=== PATIENT | male | born 1930 | race Caucasian/White ===

== ENCOUNTER 2017-01-18 13:06 | Inpatient (IN) | payer MEDICARE, OTHER ==
[~2017-01-18] VITALS: Ht 177.8 cm; Wt 65.9 kg
[2017-01-18 13:36] LABS: BASOPHILS 0.1 % (0.0-2.0); EOSINOPHILS 0.1 % (0-7); HEMATOCRIT 41.1 % (42.0-54.0); HEMOGLOBIN 14.1 g/dL (13.5-17.5); IMMATURE GRANULOCYTES 0.4 % (0-5); LYMPHOCYTES 5.5 % (15-50); MCH 29.9 pg (26.0-34.0); MCHC 34.3 g/dL (31.0-37.0); MCV 87.3 fL (80.0-100.0); MEAN PLATELET VOLUME 9.2 fL (7.4-10.4); MONOCYTES 10.4 % (2-11); NEUTROPHILS 83.5 % (40-80); PLATELET COUNT 179 10x3/uL (130-400); RBC 4.71 10x6/uL (4.20-6.10); RDW 13.7 % (11.5-14.5); WBC 14.2 10x3/uL (4.8-10.8)
[2017-01-18 13:53] LABS: ALBUMIN 3.1 g/dL (3.4-5.0); ANION GAP 13.2 mmol/L (8-16); BILIRUBIN - TOTAL 0.58 mg/dL (0.2-1.3); CALCIUM 8.8 mg/dL (8.5-10.1); CARBON DIOXIDE 24.6 mmol/L (21.0-32.0); CREATININE - SERUM 1.5 mg/dL (0.6-1.3); POTASSIUM - SERUM 5.8 mmol/L (3.5-5.1); PROTEIN - SERUM 6.8 g/dL (6.4-8.2)
--- NOTE | 2017-01-18 19:50 | NUR ---
RECEIVED FROM ER. VITALS ARE STABLE, IV-LFA-NS@ 75, FAMILY AT BEDSIDE, BED IS LOW, SRX2, CALL LIGHT IN REACH, WILL CONTINUE TO MONITOR
[2017-01-18 19:51] LABS: COLOR YELLOW (YELLOW)
[2017-01-18 19:52] LABS: APPEARANCE CLEAR (CLEAR); BILIRUBIN NEGATIVE (NEGATIVE); GLUCOSE NEGATIVE (NEGATIVE); KETONE NEGATIVE (NEGATIVE); LEUKOCYTE ESTERASE TRACE (NEGATIVE); NITRITE NEGATIVE (NEGATIVE); PROTEIN NEGATIVE (NEGATIVE); SPECIFIC GRAVITY 1.015 (1.005-1.020); UROBILINOGEN NORMAL (NORMAL)
[2017-01-18 19:56] LABS: BACTERIA NONE SEEN /hpf (NONE SEEN); EPITHELIAL CELLS 0-5 /hpf (0-5); RED CELLS - URINE 0-5 /hpf (0-5); WHITE CELLS - URINE 0-5 /hpf (0-5)
[2017-01-18 20:00] VITALS: BP 132/67
[2017-01-18] MEDS ORDERED: LISINOPRIL5 MG PO (20:07)
[2017-01-18] MEDS ORDERED: BAYER CHEWABLE81 MG PO (20:07)
[2017-01-18] MEDS ORDERED: BACTRIM DS TABL1 TAB PO (20:09)
[2017-01-18] MEDS ORDERED: ATIVAN0.5 MG PO (20:13)
[2017-01-18] MEDS ORDERED: TRAZODONE HCL50 MG PO (20:13)
[2017-01-18] MEDS ORDERED: CEREFOLIN NAC (20:14)
[2017-01-18] MEDS ORDERED: PLAVIX75 MG PO (20:14)
[2017-01-18] MEDS ORDERED: LIPITOR40 MG PO (20:15)
[2017-01-18 23:53] VITALS: Ht 177.8 cm; Wt 65.9 kg
[2017-01-19] VITALS: BP 135/75
--- NOTE | 2017-01-19 03:36 | NUR ---
ICING COATER AT BEDSIDE TO OBTAIN VITALS, CALL LIGHT IN REACH. WILL CONTINUE WITH PLAN OF CARE.
[2017-01-19 04:00] VITALS: BP 155/83
--- NOTE | 2017-01-19 06:21 | NUR ---
PT RESTING, CALL LIGHT IN REACH, BOX ALARM IS ON, WILL CONTINUE TO MONITOR
--- NOTE | 2017-01-19 07:53 | NUR ---
AM ROUNDING DONE WITH AIR TRANSPORTATION PROVIDER NURSE, ON HEART MONITOR SHOWING ST W BBB, HR 102. NS INFUSING AT 75 CC/HR TO LEFT FA WITHOUT PROBLEMS. PATIENT IS SLIGHLTLY CONFUSED, BOX ALARM IS IN USE CORRECTLY. WILL MONITOR.
[2017-01-19 09:52] VITALS: BP 140/71
--- NOTE | 2017-01-19 13:15 | NUR ---
RECEIVED CALL BACK FROM DR RECIO REGARDING PATIENT. INFORMATION GIVEN AND HE STATES THAT HE WILL SEE HIM AFTER CLINIC TODAY.
[2017-01-19 13:19] VITALS: BP 172/86
--- NOTE | 2017-01-19 14:55 | NUR ---
TALKED TO PATIENT ABOUT WEARING SCD'S AND HE REFUSED.
[2017-01-19 16:38] VITALS: BP 157/61
--- NOTE | 2017-01-19 16:38 | NUR ---
ASSISTED PATIENT TO RESTROOM. PATIENT FELT VERY WARM, FLUSHED LOOKING. CHECKED ORAL TEMP, 98.3. PAST BATHROOM USE, PATIENT FELT NORMAL AND FACE STILL A LITTLE FLUSHED. ENCORAGED TO COUGH AND DEEP BREATH.
--- NOTE | 2017-01-19 17:06 | NUR ---
Patient Name: GREG CORREIA Admission Status: ER Accout number: [id number] Admission Date: 01-18-2017 : 1930 Admission Diagnosis:DEHYDRATION Attending: CHUCK Current LOS: 1 Anticipated DC Date: Planned Disposition: Home Primary Insurance: MEDICARE A & B Discharge Planning Comments: * Is the patient Alert and Oriented? Yes 0 * How many steps to enter\exit or inside your home? 2 0 * PCP DR. RECIO 0 * Pharmacy [facility] 0 * Preadmission Environment Home with Family 0 * ADLs Independent 0 * Equipment Cane Walker 0 * Other Equipment NO MEDICAL EQUIPMENT PROVIDER PREFERENCE 0 * List name and contact numbers for known caregivers / representatives who currently or will assist patient after discharge: CORRINE CORREIA, SPOUSE, / [phone] 0 * Community resources currently utilized None 0 * Please name any agencies selected above. NONE 0 * Additional services required to return to the preadmission environment? No 0 * Can the patient safely return to the preadmission environment? Yes 0 * Has this patient been hospitalized within the prior 30 days at any hospital? No 0 CM MET WITH PT AND SPOUSE IN ROOM TO DISCUSS DISCHARGE PLANNING AND NEEDS. PT REPORTS LIVING AT HOME INDEPENDENTLY WITH SPOUSE. PT HAS A CANE AND TWO WALKERS, ONE WITH WHEELS, SEAT AND BRAKES. PT HAS NO MEDICAL EQUIPMENT PROVIDER PREFERENCE AND NO OUTSIDE SERVICES ASSISTING IN THE HOME. CM DISCUSSED AVAILABILITY OF HOME HEALTH, REHAB SERVICES AND MEDICAL EQUIPMENT. PT DENIES DISCHARGE NEEDS AT THIS TIME, REPORTS HIS SPOUSE WILL PICK HIM UP FOR DISCHARGE HOME. FAMILY ASKED GENERAL QUESTIONS ABOUT LIFT CHAIRS AND WHAT MEDICARE PAYS FOR. CM EXPLAINED THAT MEDICARE PAYS FOR THE LIFT BUT NOT THE ACTUAL CHAIR AND ADVISED THEM TO FOLLOW UP WITH A MEDICAL EQUIPMENT COMPANY REGARDING NEEDED PAPERWORK FROM A PHYSICIAN WELL WHAT THE COST WOULD BE. PT PLANS TO DISCHARGE HOME WITH SPOUSE AND DOES NOT ANTICIPATE ANY DISCHARGE NEEDS AT THIS TIME. CM TO FOLLOW AND ASSIST NEEDED. Investigative Shopper: Nicholas Chicas
--- NOTE | 2017-01-19 17:34 | NUR ---
PATIENT HAS BEEN USING HIS CALL LIGHT FOR NEEDS TODAY. BOX ALARM IS ON. FAMILY AT BEDSIDE. WILL CONTINUE TO MONITOR.
--- NOTE | 2017-01-19 20:00 | NUR ---
PT RESTING IN BED. ALERT/ORIENTED. SON AT BEDSIDE AND WATCHING BASKETBALL ON TV. NS @ 75ML/HR INFUSING TO LFA. NONLABORED RESPIRATIONS ON ROOM AIR. SR PER TELEMETRY. CALL LIGHT IN REACH. REVIEWED PLAN OF CARE AND NEW ORDERS PER DR. RECIO.
[2017-01-19 21:44] VITALS: BP 145/78
--- NOTE | 2017-01-19 23:27 | NUR ---
PT HAD REQUESTED THAT EAST CATHETER BE PLACED AFTER THE DaqiBALL GAME. 16FR EAST INSERTED NOW AND URINE COLLECTED FOR URINALYSIS AND C&S. PT NOW RESTING. IVF INFUSING NS @ 75ML/HR AND INITIAL DOSE OF IV ROCEPHIN HAS INFUSED.
[2017-01-20 00:35] VITALS: BP 139/80
[2017-01-20 01:49] LABS: APPEARANCE CLEAR (CLEAR); BILIRUBIN NEGATIVE (NEGATIVE); COLOR YELLOW (YELLOW); GLUCOSE NEGATIVE (NEGATIVE); KETONE NEGATIVE (NEGATIVE); LEUKOCYTE ESTERASE NEGATIVE (NEGATIVE); NITRITE NEGATIVE (NEGATIVE); PROTEIN NEGATIVE (NEGATIVE); UROBILINOGEN NORMAL (NORMAL)
[2017-01-20 01:50] LABS: BACTERIA NONE SEEN /hpf (NONE SEEN); EPITHELIAL CELLS 0-5 /hpf (0-5); WHITE CELLS - URINE 0-5 /hpf (0-5)
--- NOTE | 2017-01-20 04:28 | NUR ---
RESTING IN BED. IVF INFUSING. NO DISTRESS. SR PER TELEMETRY.
[2017-01-20 04:36] VITALS: BP 157/80
[2017-01-20 05:12] LABS: BASOPHILS 0.1 % (0.0-2.0); EOSINOPHILS 0.1 % (0-7); HEMATOCRIT 33.2 % (42.0-54.0); IMMATURE GRANULOCYTES 0.3 % (0-5); LYMPHOCYTES 8.5 % (15-50); MCH 28.9 pg (26.0-34.0); MCHC 33.1 g/dL (31.0-37.0); MCV 87.4 fL (80.0-100.0); MEAN PLATELET VOLUME 9.1 fL (7.4-10.4); MONOCYTES 10.5 % (2-11); NEUTROPHILS 80.5 % (40-80); PLATELET COUNT 150 10x3/uL (130-400); RDW 13.9 % (11.5-14.5)
[2017-01-20 05:14] LABS: WBC 10.1 10x3/uL (4.8-10.8)
[2017-01-20 05:27] LABS: CALCIUM 8.1 mg/dL (8.5-10.1); CARBON DIOXIDE 22.3 mmol/L (21.0-32.0); CHLORIDE - SERUM 104 mmol/L (98-107); GLUCOSE 134 mg/dL (74-106); SODIUM 136 mmol/L (136-145)
[2017-01-20 05:30] LABS: CALC OSMOLALITY 276 mosm/kg (275-300); CREATININE - SERUM 0.9 mg/dL (0.6-1.3); POTASSIUM - SERUM 4.1 mmol/L (3.5-5.1); UREA NITROGEN 22 mg/dL (7-18); eGFR NON AFRICAN AMERICAN 85 mL/min (90-120)
--- NOTE | 2017-01-20 07:46 | NUR ---
AM ROUNDING- PT LAYING ON RIGHT SIDE WITH EYES CLOSED RESTING. ON MONITOR SHOWING SR, HR 85. ON ROOM AIR. IV SEEN TO LEFT FOREARM WITH NS RUNNING AT 75CC/HR. EAST CATHETER WITH YELLOW URINE SEEN. NO NEED AT CURRENT TIME. WILL CONTINUE TO MONITOR AND CONTINUE WITH PLAN OF CARE.
[2017-01-20 08:00] VITALS: BP 125/65
--- NOTE | 2017-01-20 11:06 | NUR ---
1035- PT TO XRAY VIA WHEELCHAIR. 1050- PT BACK FROM XRAY VIA WHEELCHAIR.
[2017-01-20 12:00] VITALS: BP 151/75
--- NOTE | 2017-01-20 12:51 | HP ---
PATIENT: GREG CORREIA MEDICAL RECORD: [id number] ACCOUNT: [id number] LOCATION:[address] : 30 ADMISSION DATE: 01/18/17 HISTORY AND PHYSICAL EXAMINATION Admission History and Physical HISTORY OF PRESENT ILLNESS: An 86-year-old male presented to the Emergency Room on 01/18/2017 with a complaint of weakness, falling and cough. PAST MEDICAL HISTORY: Significant for severe inoperable cerebrovascular disease, medically managed hypertension, previous CVA, IN and carotid endarterectomy. ALLERGIES: PENICILLIN. MEDICATIONS: Lisinopril 5 mg daily, Plavix 75 mg daily, aspirin 81 mg daily, trazodone 75 mg q.h.s. p.r.n. insomnia and also takes Cerefolin and atorvastatin. SOCIAL HISTORY: . Denies tobacco. Denies alcohol. FAMILY HISTORY: Significant for brother with metastatic prostate cancer, also has a history of hyperlipidemia, insomnia, TIAs and again a previous CVA. REVIEW OF SYSTEMS: GENERAL: No reported change in weight or appetite. HEENT: No cephalgia, visual changes, tinnitus, epistaxis or dysphagia. CARDIOVASCULAR: Denies chest pain, denies palpitations. PULMONARY: Admits cough, subjective fever and chills. Denies hemoptysis. GASTROINTESTINAL: Denies hematemesis, hematochezia or melena. GENITOURINARY: Denies dysuria. Does admit frequency. MUSCULOSKELETAL: Worsening weakness, unsteady gait and frequent falls. ENDOCRINE: Denies polyuria, polydipsia, or polyphagia. PHYSICAL EXAMINATION: VITAL SIGNS: Temperature 98.2, blood pressure of 157/61, heart rate 97, respirations 17, and O2 sats 98% on room air. GENERAL: Alert and oriented, no present distress. HEENT: Normocephalic and atraumatic. Eyes: Pupils are equally round and reactive to light and accommodation. Extraocular muscles are intact. Conjunctiva was not injected. Ears: Canals patent, TMs are intact. Nose: Nares patent without drainage. Throat: No erythema, no exudates. NECK: Supple. No lymphadenopathy, no JVD. HEART: Regular rate and rhythm. No rub. LUNGS: Slightly diminished breath sounds at the bases. Breathing is nonlabored. ABDOMEN: Soft and nontender. Bowel sounds all 4 quadrants. EXTREMITIES: Present times 4, no edema. NEUROLOGIC: No present focal deficits. SKIN: Warm and dry. No rash. LABORATORY DATA: Urinalysis yellow, clear, trace leukocyte esterase. CBC: White count 14.2, hemoglobin 14.1, hematocrit 41.1, and platelets 179. Chemistry shows a sodium of 130, potassium 5.8, chloride 98, bicarbonate 24.6, HISTORY AND PHYSICAL [id number] CORREIA,GREG JESUS BUN 30, creatinine 1.5, and glucose 126. AST 55, ALT 68, and alkaline phosphatase 125. Troponin 0.019. Of note, the patient was admitted to the wrong service. I was not notified of his admission until the nurse called my clinic late this afternoon. ASSESSMENT AND PLAN: 1. Early pneumonia. Rocephin 1 gram daily, Zithromax 250 mg p.o. daily for 4 days, probiotics. 2. Labile hypertension. Resume lisinopril 5 mg daily, monitor. 3. Inoperable cerebrovascular disease. Resume Plavix and aspirin. Supportive care. 4. Insomnia. Resume trazodone and monitor. 5. Urinary frequency, episodic incontinence. Molina to gravity. Urine from Molina insertion for urinalysis and culture. Supportive care. TRANSINT:[id number] Voice Confirmation ID: [id number] DOCUMENT ID: [id number] JOSE R RECIO DO at 1251 CC: [id number] DICTATION DATE: 01/19/171914 IMAGING SCHEDULER: 01/19/17 2030 ADM IN [facility] [address] [place] [address]
--- NOTE | 2017-01-20 14:29 | NUR ---
1303- BETHANIE WITH TELEMETRY INFORMED ME THAT PT WENT INTO UNCONTROLLED A-FIB WITH HR OF 111. WENT TO CHECK ON PT AND PT STATES, " I FEEL FINE". INSTRUCTED PT TO USE CALL LIGHT AND NOTIFY STAFF IF HAVING ANY ABNORMAL SYMPTOMS, PT AGREED. DR. BERUMEN IS ON UNIT. INFORMED DR. BERUMEN OF THIS. DR. BERUMEN STATED TO DO AN EKG ON PT. EKG DONE ORDERED AND GIVEN TO DR. BERUMEN. WILL CONTINUE TO MONITOR AND AWAIT NEW ORDERS.
[2017-01-20 15:07] LABS: T4 THYROXINE 3.6 ug/dL (4.7-13.3); THYROID STIMULATING HORMONE 0.57 uIU/mL (0.36-3.74)
[2017-01-20 16:00] VITALS: BP 114/72
--- NOTE | 2017-01-20 17:01 | NUR ---
PT LAYING IN BED ON BACK WATCHING TV. FAMILY MEMBERS AND GUEST AT BEDSIDE. NO NEED AT CURRENT TIME. WILL CONTINUE TO MONITOR.
--- NOTE | 2017-01-20 19:15 | NUR ---
RECEIVED REPORT,[id number], [id number], PT HAS A EAST, A&O, BED IS LOW, SRX2, CALL LIGHT IN REACH, WILL CONTINUE TO MONITOR
[2017-01-20 20:30] VITALS: BP 128/74
[2017-01-21 00:30] VITALS: BP 125/72
--- NOTE | 2017-01-21 00:56 | NUR ---
NUTRITION REPRESENTATIVE AT BEDSIDE FOR VS, NEEDS ADDRESSED. CALL LIGHT IN REACH. WILL CONT TO MONITOR.
--- NOTE | 2017-01-21 02:55 | NUR ---
GAVE PT PRUNE JUCIE COCKTAIL, CALL LIGHT IN REACH, BED IS LOW, SRX2
[2017-01-21 04:30] VITALS: BP 141/85
[2017-01-21 05:13] LABS: BASOPHILS 0.3 % (0.0-2.0); EOSINOPHILS 0.1 % (0-7); HEMATOCRIT 32.4 % (42.0-54.0); HEMOGLOBIN 10.6 g/dL (13.5-17.5); IMMATURE GRANULOCYTES 0.3 % (0-5); LYMPHOCYTES 13.4 % (15-50); MCHC 32.7 g/dL (31.0-37.0); MCV 88.8 fL (80.0-100.0); MEAN PLATELET VOLUME 9.3 fL (7.4-10.4); MONOCYTES 8.7 % (2-11); NEUTROPHILS 77.2 % (40-80); PLATELET COUNT 153 10x3/uL (130-400); RBC 3.65 10x6/uL (4.20-6.10)
[2017-01-21 05:18] LABS: WBC 7.5 10x3/uL (4.8-10.8)
[2017-01-21 05:25] LABS: CALC OSMOLALITY 276 mosm/kg (275-300); CALCIUM 8.1 mg/dL (8.5-10.1); CHLORIDE - SERUM 106 mmol/L (98-107); CREATININE - SERUM 0.9 mg/dL (0.6-1.3); GLUCOSE 129 mg/dL (74-106); MAGNESIUM - SERUM 1.7 mg/dL (1.8-2.4); POTASSIUM - SERUM 4.7 mmol/L (3.5-5.1); SODIUM 136 mmol/L (136-145); UREA NITROGEN 20 mg/dL (7-18); eGFR NON AFRICAN AMERICAN 85 mL/min (90-120)
--- NOTE | 2017-01-21 07:20 | NUR ---
AM ROUNDING- PT LAYING IN BED ON RIGHT SIDE WITH EYES CLOSED RESTING. CHEST RISE AND FALL SEEN. ON MONITOR SHOWING SB, HR 52. ON ROOM AIR. IV SEEN TO LEFT FOREARM WITH NS RUNNING AT 75CC/HR. EAST CATHETER WITH YELLOW URINE SEEN. SCDS ARE IN ROOM BUT CURRENTLY OFF. NO NEED AT CURRENT TIME. WILL CONTINUE TO MONITOR AND CONTINUE WITH PLAN OF CARE.
[2017-01-21 08:00] VITALS: BP 126/68
[2017-01-21 12:00] VITALS: BP 133/76
[2017-01-21 16:00] VITALS: BP 159/90
--- NOTE | 2017-01-21 17:27 | NUR ---
UPON WALKING INTO PTS ROOM PT SHOWED ME HIS ARM WHICH HAD HIS IV CATHETER WITH CATH TIP INTACT STICKING OUT. PT DENIED ANY DISCOMFORT. JOSE SUMMERS WENT TO SEE ABOUT RESTICKING PT, PT REQUESTED FOR HER TO DO IT AFTER HE GETS DONE EATING. WILL AWAIT PT TO FINISH DINNER AND TRY TO RESITE IV CATHETER.
--- NOTE | 2017-01-21 17:59 | NUR ---
JOSE SUMMERS RESITED PT X 2 STICK TO PTS LEFT FOREARM WITH 22G NEEDLE. TOLERATED WELL.
--- NOTE | 2017-01-21 18:22 | NUR ---
PT SITTING UP IN BED WITH EYES OPEN RESTING. DENIES ANY NEED AT CURRENT TIME. WILL CONTINUE TO MONITOR.
[2017-01-21 20:00] VITALS: BP 162/83
--- NOTE | 2017-01-21 20:29 | NUR ---
RESUMED CARE OF PT, LYING IN BED RESPIRAITONS EVEN AND UNLABORED ON ROOM AIR. ASSISSTED TO BATHROOM. LEFT FOREARM INFUSING NS @ 75. EAST TO GRAVITY. 73 SR ON TELEMETRY. EMERGENCY LIGHT IN REACH. WILL CONTINUE TO MONITOR. SEE NURSE ASSESSMENT.
[2017-01-22 00:15] VITALS: BP 133/71
[2017-01-22 04:42] VITALS: BP 152/85
[2017-01-22 05:30] LABS: BASOPHILS 0.1 % (0.0-2.0); EOSINOPHILS 0 % (0-7); HEMATOCRIT 32.8 % (42.0-54.0); HEMOGLOBIN 10.9 g/dL (13.5-17.5); IMMATURE GRANULOCYTES 0.2 % (0-5); LYMPHOCYTES 14.1 % (15-50); MCHC 33.2 g/dL (31.0-37.0); MCV 87.2 fL (80.0-100.0); MEAN PLATELET VOLUME 9.1 fL (7.4-10.4); MONOCYTES 6.9 % (2-11); NEUTROPHILS 78.7 % (40-80); PLATELET COUNT 179 10x3/uL (130-400); RBC 3.76 10x6/uL (4.20-6.10); RDW 13.7 % (11.5-14.5); WBC 8.3 10x3/uL (4.8-10.8)
[2017-01-22 05:37] LABS: CALC OSMOLALITY 280 mosm/kg (275-300); CALCIUM 8.2 mg/dL (8.5-10.1); CARBON DIOXIDE 24.1 mmol/L (21.0-32.0); CHLORIDE - SERUM 107 mmol/L (98-107); CREATININE - SERUM 0.8 mg/dL (0.6-1.3); POTASSIUM - SERUM 4.6 mmol/L (3.5-5.1); SODIUM 138 mmol/L (136-145); UREA NITROGEN 22 mg/dL (7-18); eGFR NON AFRICAN AMERICAN > 90 mL/min (90-120)
[2017-01-22 05:41] LABS: GLUCOSE 129 mg/dL (74-106)
--- NOTE | 2017-01-22 06:09 | NUR ---
NO CHANGES FROM PREVIOUS ASSESSMENT, CALL LIGHT IN REACH.
--- NOTE | 2017-01-22 08:08 | NUR ---
ASSESSMENT DONE. PT LAYING IN BED WATCHING TV. A/O. JEWEL BEARING TURNER IN ROOM WITH PT. CRUZITO PATENT TO BSD. PT DENIES NEEDS AT THIS TIME. NO DISTRESS NOTED. CALL LIGHT WITH IN REACH. WILL CONT. TO MONITOR.
[2017-01-22 08:27] VITALS: BP 134/70
--- NOTE | 2017-01-22 08:41 | NUR ---
IV PATENT. CALL LIGHT IN REACH. WILL CONT. PLAN OF CARE.
--- NOTE | 2017-01-22 10:09 | EC ---
PATIENT:GREG CORREIA DATE OF SERVICE: 01/18/17 SEX: M MEDICAL RECORD: [id number] DATE OF : 30 LOCATION:D.M2 D.213 AGE OF PATIENT: 86 ADMISSION DATE: 01/18/17 REFERRING PHYSICIAN: INTERPRETING PHYSICIAN: TUSHAR GASPAR MD ECHOCARDIOGRAM REPORT ECHO CHARGES 4 ECHO COMPLETE CLINICAL DIAGNOSIS: NEW ONSET A-FIB ECHOCARDIOGRAPHIC MEASUREMENTS (adult normal given) AC root (d.<3.7cm) 3.4 LV Septum d (<1.2 cm> 1.8 Valve Excursion 1.5 LV Septum (systole) 2.3 Left Atria (s.<4.0cm> 3.5 LVPW d(<1.2cm) 1.6 RV (d.<2.3cm) 2.2 LVPW (sytole) 2.2 LV diastole(<5.6CM) 4.2 MV E-F(>70mm/sec) LV systole 2.2 LVOT Diameter 1.9 MV exc.(>10mm) Est.ejection fraction (50-75%) Pericardial Effusion N DOPPLER: LVIT A 104 E 83.0 LA RVSP 35.0 LVOT 72.0 AOP1/2T Asc. Ao 129 RVOT 58.0 RA PA 74.0 AV Gradient Peak 6.7 AV Mean 3.0 AV Area 1.6 MV Gradient Peak 5.3 MV Mean 1.9 MV Area COMMENTS: Energy Advisor: Lin PRASADOE Supreme Court Judge:1 Dr. Gaspar TAPE# PACS DATE OF SERVICE: 01/20/2017 Echocardiogram FINDINGS: 1. Left ventricular chamber size is within normal limits. Left ventricular systolic function is normal. Overall ejection fraction estimated at 50%. 2. Left atrium, right atrium, and right ventricular chamber sizes are within normal limits. 3. Valvular structures have normal structure and motion. ECHOCARDIOGRAM REPORT [id number] GREG CORREIA 4. Doppler interrogation only reveals [id number] tricuspid regurgitation, no other valvular insufficiency or stenosis; however, pulmonary systolic pressure is normal estimated 35 mmHg. 5. No evidence of pericardial effusion or left ventricular thrombus. TRANSINT:[id number] Voice Confirmation ID: [id number] DOCUMENT ID: [id number] TUSHAR GASPAR MD at 1009 CC: [id number] DICTATION DATE: 01/21/17 1155 STRUCTURAL MILL SUPERVISOR: 01/21/17 2218 ADM IN [facility] [address] [id number]
--- NOTE | 2017-01-22 10:09 | CN ---
PATIENT NAME:GREG CORREIA MEDICAL RECORD: [id number] : 30 LOCATION:D.M2 D.2133 ADMIT DATE: 01/18/17 ACCOUNT: [id number] CONSULTING PHYSICIAN: TUSHAR LEPE MD REFERRING PHYSICIAN: JOSE R RECIO DO DATE OF CONSULTATION: 01/21/2017 DIAGNOSES: 1. Paroxysmal atrial fibrillation. 2. Pneumonia. 3. Dehydration. 4. Frequent falls. HISTORY OF PRESENT ILLNESS: This is a gentleman with no previous cardiac history, admitted with pneumonia and found to be in and out of atrial fibrillation. Echocardiogram was performed his heart is structurally normal, ejection fraction is normal left atrial size is as well normal. He has mild mitral regurgitation. He has not had any chest pain or chest discomfort. He cannot feel that he is going in and out of atrial fibrillation. PHYSICAL EXAMINATION: GENERAL APPEARANCE: Well-nourished, well-developed, appears stated age. Level of distress, comfortable. PSYCHIATRIC: Mental status, alert, normal affect. Orientation, oriented to time, place and person. EYES: Lids and conjunctiva, noninjected. No discharge, no pallor. ENT: Lips, teeth, gums, normal dentition. Oropharynx, no cyanosis, no pallor. NECK: Carotid arteries, bilateral normal upstroke, no bruits, no thrills. JUGULAR VEINS: No jugular venous pressure or distention. CERVICAL LYMPH NODES: Nontender, nonenlarged. THYROID: Not enlarged. Nontender. No nodules. LUNGS: Respiratory effort, unlabored. CHEST: Normal curvature. No thoracic deformity. No chest wall tenderness. Percussion, resonant. Auscultation, clear. No wheezes, no rales, no rhonchi. CARDIOVASCULAR: Precordial exam, nondisplaced. No heaves or pericardial thrills. Rate and rhythm, regular. Heart sounds, normal S1, normal S2. No S3, no gallop, no rub. Systolic murmur, not heard. Diastolic murmur, not heard. EXTREMITIES: No cyanosis, no edema. Peripheral pulses, full and equal in all extremities, except as noted. No bruits appreciated. ABDOMEN: Soft, nondistended. Normal aorta. No bruit. Nontender. No masses. Liver, nontender, no hepatomegaly. Spleen, nontender, no splenomegaly. MUSCULOSKELETAL: No joint tenderness. No joint swelling. No erythema. NEUROLOGICAL: Normal gait, normal strength, normal tone. SKIN: Warm and dry. REVIEW OF SYSTEMS: The patient reports easy bruising but reports no swollen glands. The patient reports no fever, no night sweats, no significant weight gain, no significant weight loss. No significant exercise tolerance. The patient reports no dry eyes, no irritation, no vision change. Patient reports no difficulty hearing and no ear pain. Patient reports no frequent nose bleeds or nose and sinus problems. Patient reports on arm pain on exertion. No shortness of breath while lying down. No history of heart murmur. Patient reports no cough, no wheezing or coughing up blood. Patient reports no abdominal pain, no vomiting. Normal appetite. No diarrhea and not vomiting blood. No nausea and no constipation. Patient reports no incontinence. No CONSULT REPORT [id number] GREG CORREIA difficulty urinating. No hematuria. No increased frequency. Patient reports no muscle aches. No weakness, no arthralgias, no back pain. No swelling of the extremities. Patient reports no abnormal mole, no jaundice, no rashes. Reports no loss of consciousness. No weakness and no numbness. No seizures, dizziness, or headaches. The patient reports no depression, no sleep disturbance, feeling safe in a relationship and no alcohol abuse. Patient reports on fatigue. Reports no runny nose or sinus pressure. No itching, no hives, and no frequent sneezing. OVERALL IMPRESSION: Paroxysmal atrial fibrillation. At this time, antiarrhythmic would be a better choice and pure beta-lexx as he continues to go in and out of atrial fibrillation on the atenolol. We will discontinue the atenolol, had him on Cordarone 200 mg a day. Hopefully, this will control him in sinus rhythm. TRANSINT:[id number] Voice Confirmation ID: [id number] DOCUMENT ID: [id number] TUSHAR LEPE MD at 1009 CC: [id number] DICTATION DATE: 01/21/17 1214 MORTGAGE LOAN OFFICER: 01/21/17 1608 ADM IN [place] [address] [place] [address]
[2017-01-22 11:01] VITALS: BP 154/76
--- NOTE | 2017-01-22 11:24 | NUR ---
d/c knowles tolerated without complaint , 300 ml yellow urine emptied, removed stat lock
[2017-01-22] MEDS ORDERED: CORDARONE200 MG PO (12:06)
[2017-01-22] MEDS ORDERED: IPRAT-ALBUT 0.5-3 ML UPD (12:06)
[2017-01-22] MEDS ORDERED: FLORAJEN3 CAPS460 MG PO (12:07)
[2017-01-22] MEDS ORDERED: MILK OF MAGNESI30 ML PO (12:07)
[2017-01-22] MEDS ORDERED: ALBUTEROL2.5 MG/3 M INH (12:10)
[2017-01-22] MEDS ORDERED: OMNICEF300 MG PO (12:11)
--- NOTE | 2017-01-22 12:20 | NUR ---
Rehab Prescreening Consult recieved and the patient was visited. He meets criteria and agrees to participate in the required therapy. He will be accepted today if the physician agrees. The CM's have been made aware. Fabiola Mclaughlin RN Clinical Liaison, Rehab
--- NOTE | 2017-01-22 12:25 | NUR ---
Patient Name: GREG CORREIA Encounter No: [id number] : 1930 Primary Insurance: MEDICARE A & B Anticipated DC Date: Planned Disposition: INPATIENT REHAB External Planned Provider: [facility] INPATIENT REHAB DCP follow-up note: CM RECEIVED ORDER FOR INPATIENT REHAB PRESCREENING,SPOKE TO ZONIA WHO WILL EVALUATE AND SPEAK TO PT. CM LATER RECEIVED MESSAGE FROM ZONIA THAT INPATIENT REHAB PLANS TO ACCEPT TODAY FOR REHAB IF READY FOR DISCHARGE. PT NOTIFIED, IN AGREEMENT WITH DISCHARGE TO INPATIENT REHAB. IMPORTANT MESSAGE FROM MEDICARE PROVIDED AND EXPLAINED. [facility] INPATIENT REHAB TO CONTACT MED 2 NURSE WITH ROOM NUMBER WHEN READY TO ACCEPT PT AND NURSE REPORT. Nicholas Chicas, CASE MANAGEMENT
[2017-01-22 15:00] VITALS: BP 150/72
--- NOTE | 2017-01-22 16:27 | NUR ---
REPORT CALLED TO TIM IN IN-PATIENT REHAB. PT TO D/C TO ROOM 1116 VIA WC. TELEMETRY ON. NURSE REQUESTED THIS NURSE LEAVE IV IN FOR THE TIME BEING. D/C INSTRUCTIONS GIVEN TO PT AND FAMILY. PT'S FAMILY PACKED ALL BELONGINGS.
--- NOTE | 2017-02-25 11:20 | DS ---
PATIENT:GREG CORREIA :30 MEDICAL RECORD: [id number] DISCHARGE SUMMARY ADMISSION DATE: 01/18/17 DISCHARGE DATE: 01/22/17 DATE OF ADMISSION: 01/18/2017 DATE OF DISCHARGE: 01/22/2017 ADMISSION DIAGNOSES: Pneumonia, labile hypertension, inoperable cerebrovascular disease, insomnia and urinary frequency. DISCHARGE DIAGNOSES: Pneumonia, paroxysmal atrial fibrillation, gait abnormality. CONSULTS: Dr. Mando Gaspar, cardiology. PROCEDURES: Echocardiogram, which showed ejection fraction of 50%. HOSPITAL COURSE: The patient admitted to the Emergency Room with worsening weakness, frequent falls, cough. Urine showed trace leukocyte esterase. CBC showed elevated white count of 14,200. Chest x-ray suggestive of early pneumonia. The patient was admitted. IV antibiotics started, was placed on telemetry with his history. Was found to be in and out of atrial fibrillation. Cardiology consulted. No significant abnormalities on echocardiogram. Dr. Gaspar, cardiology suggested medications continued to improve. PT was consulted for gait training, this patient has frequent falls with severe inoperable cerebrovascular disease. Rehab eval was obtained. The patient was discharged to rehab in significantly improved condition. PHYSICAL EXAMINATION: VITAL SIGNS ON DISCHARGE: Temp 98.8, heart rate 82 and regular, blood pressure 150/72, respirations 19, O2 sats 94% on room air. DISCHARGE MEDICATIONS: Per med rec. Clinic follow up after discharge from rehab. Agree with the assessment from cardiology. Please see chart for further details. TRANSINT:[id number] Voice Confirmation ID: [id number] DOCUMENT ID: [id number] JOSE R RECIO DO at 1120 CC: [id number] DICTATION DATE: 02/24/171707 INTAKE ASSESSOR: [id number] DIS IN 01/22/17 [facility] [address] [id number]
== END 2017-01-22 16:30 | DRG 308 ==
LOC: OBSVTIME → D.ER 13:06 → D.OPS 13:06 → EDSTATUS 15:13 → D.ER 18:41 → OBSVTIME 18:41 → D.M2 18:41
PROVIDERS: Emergency Medicine; ADMIT Family Medicine
PROC: 0T9B70Z Drainage of Bladder with Drainage Device, Via Natural or Artificial Opening (ICD-10-PCS; principal; 2017-01-19)
DX: I48.0 Paroxysmal atrial fibrillation (principal); J18.9 Pneumonia, unspecified organism; E86.0 Dehydration; I10 Essential (primary) hypertension; G47.00 Insomnia, unspecified; K59.00 Constipation, unspecified; Z91.81 History of falling; Z86.73 Personal history of transient ischemic attack (TIA), and cerebral infarction without residual deficits; R35.0 Frequency of micturition

== ENCOUNTER 2017-01-22 16:44 | Inpatient (IN) | payer MEDICARE, OTHER ==
[~2017-01-22] VITALS: Ht 177.8 cm; Wt 65.3 kg
[~2017-01-22 16:44] MED LIST: ALBUTEROL2.5 MG/3 M INH; ATIVAN0.5 MG PO; BACTRIM DS TABL1 TAB PO; BAYER CHEWABLE81 MG PO; CEREFOLIN NAC; CORDARONE200 MG PO; FLORAJEN3 CAPS460 MG PO; IPRAT-ALBUT 0.5-3 ML UPD; LIPITOR40 MG PO; LISINOPRIL5 MG PO; MILK OF MAGNESI30 ML PO; OMNICEF300 MG PO; PLAVIX75 MG PO; TRAZODONE HCL50 MG PO
[2017-01-22 18:23] VITALS: BP 169/79; BMI 20.7
[2017-01-22 19:37] VITALS: BP 164/89
[2017-01-23 05:56] LABS: BASOPHILS 0.1 % (0.0-2.0); EOSINOPHILS 0.1 % (0-7); HEMATOCRIT 34.6 % (42.0-54.0); HEMOGLOBIN 11.4 g/dL (13.5-17.5); IMMATURE GRANULOCYTES 0.2 % (0-5); LYMPHOCYTES 13.2 % (15-50); MCH 28.9 pg (26.0-34.0); MCHC 32.9 g/dL (31.0-37.0); MCV 87.8 fL (80.0-100.0); MEAN PLATELET VOLUME 8.9 fL (7.4-10.4); MONOCYTES 6.9 % (2-11); NEUTROPHILS 79.5 % (40-80); PLATELET COUNT 209 10x3/uL (130-400); RBC 3.94 10x6/uL (4.20-6.10); RDW 13.6 % (11.5-14.5); WBC 9.7 10x3/uL (4.8-10.8)
[2017-01-23 06:17] LABS: CALC OSMOLALITY 278 mosm/kg (275-300); CALCIUM 8.5 mg/dL (8.5-10.1); CARBON DIOXIDE 27.4 mmol/L (21.0-32.0); CHLORIDE - SERUM 105 mmol/L (98-107); GLUCOSE 111 mg/dL (74-106); POTASSIUM - SERUM 4.7 mmol/L (3.5-5.1); SODIUM 138 mmol/L (136-145); UREA NITROGEN 19 mg/dL (7-18); eGFR NON AFRICAN AMERICAN 75 mL/min (90-120)
[2017-01-23 09:05] VITALS: BP 184/95
[2017-01-23 11:58] VITALS: Ht 177.8 cm; Wt 65.3 kg
[2017-01-23 19:15] VITALS: BP 132/65
[2017-01-24 06:22] LABS: BASOPHILS 0.2 % (0.0-2.0); EOSINOPHILS 0 % (0-7); HEMATOCRIT 36.3 % (42.0-54.0); HEMOGLOBIN 12.1 g/dL (13.5-17.5); IMMATURE GRANULOCYTES 0.4 % (0-5); LYMPHOCYTES 14.5 % (15-50); MCH 29.1 pg (26.0-34.0); MCHC 33.3 g/dL (31.0-37.0); MCV 87.3 fL (80.0-100.0); MEAN PLATELET VOLUME 8.9 fL (7.4-10.4); MONOCYTES 6.8 % (2-11); NEUTROPHILS 78.1 % (40-80); PLATELET COUNT 248 10x3/uL (130-400); RBC 4.16 10x6/uL (4.20-6.10); RDW 13.8 % (11.5-14.5); WBC 9.8 10x3/uL (4.8-10.8)
[2017-01-24 06:26] LABS: CALC OSMOLALITY 272 mosm/kg (275-300); CALCIUM 8.3 mg/dL (8.5-10.1); CARBON DIOXIDE 26.6 mmol/L (21.0-32.0); CHLORIDE - SERUM 102 mmol/L (98-107); CREATININE - SERUM 0.9 mg/dL (0.6-1.3); GLUCOSE 100 mg/dL (74-106); POTASSIUM - SERUM 4.1 mmol/L (3.5-5.1); SODIUM 135 mmol/L (136-145); UREA NITROGEN 21 mg/dL (7-18); eGFR NON AFRICAN AMERICAN 85 mL/min (90-120)
[2017-01-24 07:57] VITALS: BP 160/80
--- NOTE | 2017-01-24 12:28 | RHP ---
PATIENT: GREG CORREIA MEDICAL RECORD: [id number] ACCOUNT: [id number] LOCATION:[facility] : 30 ADMISSION DATE: 01/22/17 REHABILITATION HISTORY AND PHYSICAL EXAMINATION POST ADMISSION PHYSICIAN EXAMINATION Post Admission Physical Examination and History and Physical DATE OF ADMISSION: 01/22/2017 ADMITTING DIAGNOSES: Right lower lobe pneumonia, emphysema, new onset atrial fibrillation with rapid ventricular response. HISTORY OF PRESENT ILLNESS: The patient is an 86-year-old gentleman, who presented to Emergency Room on 01/18/2017 with complaints of weakness, frequent falls, anorexia, fever, confusion and cough. Chest x-ray showed right lower lobe airspace disease, suggestive of atelectasis or pneumonia and emphysema. He has no previous cardiac history, was found to be in and out of atrial fibrillation with rapid ventricular response. Echocardiogram was performed and his heart is structurally normal. Ejection fraction is normal and his left atrial size was also normal. He does have some mitral regurgitation. He has not had any chest pain or chest discomfort. He cannot feel that he is going in and out of atrial fib, cardiology was consulted, he is started on Cordarone 200 mg daily and is now in a normal sinus rhythm. For the pneumonia, he was started on Rocephin and Zithromax, DuoNeb updrafts, and albuterol. Prior to admit, he lives with his , was markedly independent with a cane for ADLs and mobility. He has had more than 5 falls here recently, currently he is a min to moderate assist for ADLs and mobility. He has dizziness, weakness in his legs, frequent loss of balance. He tends to fall down in a chair and needs cues to ease down to avoid fall or injury. He will definitely benefit from inpatient rehabilitation. COMORBIDITIES: In this patient include dehydration, anemia, labile hypertension, cerebrovascular disease, worsening weakness, unsteady gait, frequent falls, poor balance, confusion, disorientation, coronary artery disease, carotid stenosis, history of AK, arthritis, insomnia and urinary incontinence. PAST MEDICAL HISTORY: Significant for inoperable cardiovascular disease, hypertension, previous CVA, and AK. PAST SURGICAL HISTORY: Includes carotid endarterectomy. ALLERGIES: DILANTIN AND ALSO ALLERGIC TO PENICILLIN. CURRENT MEDICATIONS: Include lisinopril 5 mg daily, ____ daily, Plavix 75 mg daily, aspirin chewable 81 mg daily, amiodarone 200 mg daily, and trazodone 75 mg q.h.s. He is on Omnicef 300 mg b.i.d., DuoNeb updrafts as needed, milk of magnesia p.r.n. constipation, trazodone 75 mg q.h.s., and he is on Lipitor 40 mg q.h.s. HABITS: No alcohol or tobacco use. FAMILY HISTORY: Noncontributory. HISTORY AND PHYSICAL [id number] GREG CORREIA SOCIAL HISTORY: The patient hopes to return back home and get back to his prior level of function with his . REVIEW OF SYSTEMS: GENERAL: He does complain of weakness. HEENT: He does complain of cold, cough, congestion. CARDIOVASCULAR: He denies any chest pain. LUNGS: He does complain of shortness of breath. PHYSICAL EXAMINATION: VITAL SIGNS: Stable, afebrile. GENERAL: A thin gentleman, in no acute distress, alert upon exam. HEENT: Normocephalic and atraumatic. Mucosa moist. NECK: Supple. No lymphadenopathy. LUNGS: Clear at this time. HEART: ____ rate and rhythm. ABDOMEN: Benign. EXTREMITIES: No clubbing, cyanosis or edema. NEUROLOGIC: Intact. LABORATORY DATA: His white count is 9.7, H&H of 11 and 35, and platelet count is 209. Sodium 138, potassium 4.7, BUN and creatinine of 19 and 1.0 and blood sugar is noted to be 111. ASSESSMENT: This is an 86-year-old gentleman admitted to the rehab with a working diagnoses of right lower lobe pneumonia, emphysema and also new onset atrial fibrillation, now in normal sinus rhythm. The patient has potential to make improvement. We instituted the following multidisciplinary therapies including to, but not limited to physical, occupational, respiratory, speech, nutritional services, prosthetics and orthotics. Given his complex condition and risk for more complications, rehabilitation services cannot be provided at a low level of care such as a retirement facility. PLAN: 1. Admit to [facility] rehab for intensive inpatient therapy to include the following disciplines: A. Physical therapy to improve gait, all transfer skills and bed mobility to a modified independent level. B. Occupational therapy to improve activities of daily living to a modified independent level. C. Case management to assist with discharge planning and placement options. D. Nutrition to assist with nutritional needs. E. Rehabilitation nursing to assist in monitoring the patient's underlying medical conditions and to assist with any type of bowel or bladder management. 2. The patient's current medications and medical care will be continued. 3. The patient will be placed on standard fall precautions. 4. The patient's estimated length of stay is approximately 7-10 days. 5. Discuss this patient during care team staff meeting this week. TRANSINT:[id number] Voice Confirmation ID: [id number] DOCUMENT ID: [id number] HISTORY AND PHYSICAL [id number] GREG CORREIA SCOTT MD at 1228 CC: [id number] DICTATION DATE: 01/23/17 1430 ARCHITECTURE PROFESSOR: 01/23/17 1521 ADM IN [facility] [address] [place] [address]
[2017-01-24 20:04] VITALS: BP 187/94
[2017-01-25 08:21] VITALS: BP 176/85
[2017-01-25 19:05] VITALS: BP 104/54
[2017-01-26 06:15] LABS: BASOPHILS 0.1 % (0.0-2.0); EOSINOPHILS 0 % (0-7); HEMATOCRIT 36.8 % (42.0-54.0); HEMOGLOBIN 12.1 g/dL (13.5-17.5); IMMATURE GRANULOCYTES 0.4 % (0-5); LYMPHOCYTES 19.1 % (15-50); MCH 28.8 pg (26.0-34.0); MCHC 32.9 g/dL (31.0-37.0); MCV 87.6 fL (80.0-100.0); MEAN PLATELET VOLUME 8.6 fL (7.4-10.4); MONOCYTES 8.8 % (2-11); NEUTROPHILS 71.6 % (40-80); PLATELET COUNT 269 10x3/uL (130-400); RDW 13.8 % (11.5-14.5)
[2017-01-26 06:33] LABS: ANION GAP 10.5 mmol/L (8-16); CALCIUM 8.3 mg/dL (8.5-10.1); CREATININE - SERUM 1.2 mg/dL (0.6-1.3); POTASSIUM - SERUM 4.5 mmol/L (3.5-5.1)
[2017-01-26 08:37] VITALS: BP 141/61
[2017-01-26 20:06] VITALS: BP 166/82
[2017-01-27 07:00] VITALS: BP 126/60
[2017-01-27 20:00] VITALS: BP 160/72
[2017-01-28 07:00] VITALS: BP 120/56
[2017-01-28 19:00] VITALS: BP 154/74
[2017-01-29 08:28] LABS: BASOPHILS 0.1 % (0.0-2.0); EOSINOPHILS 0 % (0-7); HEMATOCRIT 39.1 % (42.0-54.0); HEMOGLOBIN 12.8 g/dL (13.5-17.5); IMMATURE GRANULOCYTES 0.3 % (0-5); LYMPHOCYTES 21.5 % (15-50); MCH 29.2 pg (26.0-34.0); MCHC 32.7 g/dL (31.0-37.0); MCV 89.1 fL (80.0-100.0); MEAN PLATELET VOLUME 8.5 fL (7.4-10.4); MONOCYTES 5.5 % (2-11); NEUTROPHILS 72.6 % (40-80); PLATELET COUNT 226 10x3/uL (130-400); RBC 4.39 10x6/uL (4.20-6.10); WBC 6.7 10x3/uL (4.8-10.8)
[2017-01-29 08:38] LABS: ANION GAP 9.5 mmol/L (8-16); CALCIUM 8.3 mg/dL (8.5-10.1); CARBON DIOXIDE 28.1 mmol/L (21.0-32.0); CREATININE - SERUM 1.3 mg/dL (0.6-1.3); POTASSIUM - SERUM 4.6 mmol/L (3.5-5.1)
[2017-01-29 10:55] VITALS: BP 148/63
[2017-01-29 19:00] VITALS: BP 129/67
[2017-01-30 09:31] VITALS: BP 152/70
[2017-01-30 19:14] VITALS: BP 178/89
[2017-01-31 07:00] VITALS: BP 149/64
[2017-01-31 20:45] VITALS: BP 145/71
[2017-02-01] MEDS ORDERED: LISINOPRIL10 MG PO (11:40)
[2017-02-01 14:35] VITALS: BP 139/57
== END 2017-02-01 13:10 | disposition home health service (06) | DRG 195 ==
LOC: D.REHAB 16:44
PROVIDERS: ADMIT Emergency Medicine
DX: J18.9 Pneumonia, unspecified organism (principal); J43.9 Emphysema, unspecified; E86.0 Dehydration; I48.0 Paroxysmal atrial fibrillation; D64.9 Anemia, unspecified; R53.1 Weakness; R26.9 Unspecified abnormalities of gait and mobility; R41.0 Disorientation, unspecified; I10 Essential (primary) hypertension; Z91.81 History of falling; I25.10 Atherosclerotic heart disease of native coronary artery without angina pectoris; R32 Unspecified urinary incontinence; G47.00 Insomnia, unspecified; R42 Dizziness and giddiness

== ENCOUNTER 2017-02-19 18:46 | Emergency (ER) | payer MEDICARE, OTHER ==
[2017-01-23 11:58] VITALS: BMI 20.6
[~2017-02-19 18:46] MED LIST changes: +LISINOPRIL10 MG PO
[2017-02-19 19:40] LABS: BASOPHILS 0.2 % (0.0-2.0); EOSINOPHILS 0.2 % (0-7); HEMATOCRIT 42.3 % (42.0-54.0); IMMATURE GRANULOCYTES 0.2 % (0-5); LYMPHOCYTES 25.5 % (15-50); MCH 29.8 pg (26.0-34.0); MCHC 33.1 g/dL (31.0-37.0); MEAN PLATELET VOLUME 8.7 fL (7.4-10.4); MONOCYTES 8.7 % (2-11); NEUTROPHILS 65.2 % (40-80); PLATELET COUNT 163 10x3/uL (130-400); RDW 14.6 % (11.5-14.5)
[2017-02-19 19:57] LABS: ALBUMIN 3.8 g/dL (3.4-5.0); ANION GAP 10.8 mmol/L (8-16); BILIRUBIN - TOTAL 0.46 mg/dL (0.2-1.3); CALCIUM 8.7 mg/dL (8.5-10.1); CARBON DIOXIDE 29.4 mmol/L (21.0-32.0); CREATININE - SERUM 1.3 mg/dL (0.6-1.3); POTASSIUM - SERUM 4.2 mmol/L (3.5-5.1); PROTEIN - SERUM 6.7 g/dL (6.4-8.2)
[2017-02-19 20:07] LABS: MAGNESIUM - SERUM 2.2 mg/dL (1.8-2.4); TROPONIN-I 0.021 ng/mL (0.000-0.060)
== END 2017-02-19 21:55 | disposition home or self-care (01) ==
LOC: D.ER 18:46
PROVIDERS: Family Medicine
DX: I10 Essential (primary) hypertension (principal); Z86.73 Personal history of transient ischemic attack (TIA), and cerebral infarction without residual deficits; E87.5 Hyperkalemia; I45.10 Unspecified right bundle-branch block